=== PATIENT | female | born 1970 | race American Indian/Alaskan Native ===

== ENCOUNTER 2016-07-21 18:48 | Emergency (ER) | payer OTHER ==
[2016-07-21] MEDS ORDERED: NACL 0.9% 1000 ML 1,000 ML IV ONE (19:36)
[2016-07-21 20:09] LABS: Basophils % (Auto) 0.5 % (0.0-1.8); Eosinophils % (Auto) 0.6 % (0.0-4.3); Hematocrit 38.3 % (30.3-42.9); Hemoglobin 12.5 gm/dl (10.1-14.3); Mean Corpuscular HGB Conc 33 % (30-34); Mean Corpuscular Hemoglobin 29 pg (28-32); Mean Corpuscular Volume 89 fl (79-97); Platelet Count 233 K/mm3 (140-440); Red Blood Count 4.31 M/mm3 (3.65-5.03); Red Cell Distribution Width 14.9 % (13.2-15.2); White Blood Count 7.5 K/mm3 (4.5-11.0)
[2016-07-21 20:20] LABS: Partial Thromboplastin Time 27.9 Sec. (24.2-36.6)
[2016-07-21 20:29] LABS: Alanine Aminotransferase 17 units/L (7-56); Albumin 4.3 g/dL (3.9-5); Albumin/Globulin Ratio 1.2 %; Alkaline Phosphatase 66 units/L (35-129); Anion Gap 20 mmol/L; BUN/Creatinine Ratio 14.28; Bilirubin,Total 0.4 mg/dL (0.1-1.2); Blood Urea Nitrogen 10 mg/dL (7-17); Calcium 9.5 mg/dL (8.4-10.2); Carbon Dioxide 22 mmol/L (22-30); Chloride 98.7 mmol/L (98-107); Glucose 84 mg/dL (65-100); Lipase 29 units/L (13-60); Potassium 4.1 mmol/L (3.6-5.0); Sodium 137 mmol/L (137-145)
--- NOTE | 2016-07-22 07:05 | Emergency Department Report ---
HPI - General Chief Complaint: GI Bleed Time Seen by Provider: 07/22/16 06:58 - HPI HPI: Chief complaint: Rectal bleeding HPI: Patient is a 46-year-old female with no previous history of rectal bleeding or a screening colonoscopy presents with 2 episodes of rectal bleeding. Patient states that she always feels fatigued but has attributed that to menopause. Patient does not have any exertional shortness of breath. Patient has a history of type 2 diabetes. Mode of arrival: [private car] Source: [Patient] Began: First episode was 2:00 yesterday afternoon and second episode was 4:00 yesterday afternoon Duration: See above Context: See above Quality: Pain-free Severity: 0 out of 10 Improved with: Nothing Worsened with: Nothing Associated signs and symptoms: See above. No melena, nausea, vomiting ED Past Medical Hx - Past Medical History Previous Medical History?: Yes Hx Diabetes: Yes (type 2) - Surgical History Past Surgical History?: Yes Additional Surgical History: c section x3 D&C x1 - Social History Smoking Status: Never Smoker Substance Use Type: Alcohol, Non Opiate Pain, Prescribed ED Review of Systems ROS: Stated complaint: DIZZINESS/RECTAL BLEEDING/CHILLS/ FATIGUE Other details as noted in HPI ROS Constitutional: No fever ENT: No uri symptoms Cardiovascular: No chest pain Respiratory: No sob or cough GI: No nausea vomiting or diarrhea : No dysuria frequency or urgency, Skin: No rash Neuro: No focal weakness or numbness Psych: No depression Rik/lymph: No edema Physical Exam - Physical Exam Vital Signs: Vital Signs 07/21/16 19:30 Temperature 98.4 F Pulse Rate 60 Respiratory 18 Rate Blood Pressure 121/86 Blood Pressure 121/86 [Right] O2 Sat by Pulse 100 Oximetry Physical Exam: GENERAL: The patient is well-developed well-nourished . HEENT: Normocephalic. Atraumatic. Extraocular motions are intact. Patient has moist mucous membranes. NECK: Supple. No meningitic signs are noted. There is no adenopathy noted. CHEST/LUNGS: Clear to auscultation. There is no respiratory distress noted. HEART/CARDIOVASCULAR: Regular. There is no tachycardia. There is no gallop rub or murmur. ABDOMEN: Abdomen is soft, nontender. Patient has normal bowel sounds. There is no abdominal distention. Rectal exam shows showed no external hemorrhoids and no internal masses were felt. Patient had pinkish mucus that was guaiac positive. No bright red blood or clots noted. SKIN: There is no rash. There is no edema. There is no diaphoresis. NEURO: The patient is awake, alert, and oriented. The patient is cooperative. The patient has no focal neurologic deficits. The patient has normal speech. MUSCULOSKELETAL: There is no tenderness or deformity. There is no limitation range of motion. There is no evidence of acute injury. ED Course Vital Signs 07/21/16 19:30 Temperature 98.4 F Pulse Rate 60 Respiratory 18 Rate Blood Pressure 121/86 Blood Pressure 121/86 [Right] O2 Sat by Pulse 100 Oximetry - Reevaluation(s) Reevaluation #1: 07/22/16 07:[address] Padron. Requested that patient call the office at 9:00 this morning to set up an appointment for either this afternoon or early next week. ED Medical Decision Making - Lab Data Result diagrams: 07/21/16 19:51 07/21/16 19:51 Laboratory Tests 07/21/16 07/21/16 19:51 19:51 PT 13.1 INR 1.00 APTT 27.9 Total Bilirubin 0.4 Lipase 29 - EKG Data -: EKG Interpreted by Me EKG shows normal: sinus rhythm Rate: bradycardia (56) - EKG Data When compared to previous EKG there are: previous EKG unavailable Interpretation: normal EKG (except for bradycardia) Critical care attestation.: If time is entered above; I have spent that time in minutes in the direct care of this critically ill patient, excluding procedure time. ED Disposition Clinical Impression: Rectal bleeding Disposition: DISCHARGED TO HOME OR SELFCARE Is pt being admited?: No Does the pt Need Aspirin: No Condition: Stable Instructions: Rectal Bleeding (ED) Referrals: [facility] [Provider Group] - [place] (Call this morning at 9: 00 to set up an appointment. Tell them you were here in the emergency department and Dr. Padron requested that you be seen as soon as possible.) Forms: Accompanied Note Time of Disposition: 07:34
[2016-07-22 08:11] VITALS: BP 117/74
== END 2016-07-22 08:10 | disposition home or self-care (01) ==
LOC: ED 18:48
DX: K62.5 Hemorrhage of anus and rectum (principal); E11.9 Type 2 diabetes mellitus without complications
CPT/HCPCS: 36415; 80053; 82271; 83690; 85025; 85610; 85730; 86850; 86900; 86901; 93005; 93010; 99284